=== PATIENT | female | born 1950 | race Hispanic/Latino ===

== ENCOUNTER → 2023-01-09 | Outpatient (REF) | payer MEDICARE ==
[~2023-01-09] MED LIST: LEVOTHYROXINE50 MCG PO; SIMVASTATIN20 MG PO; ZESTRIL10 MG PO
== END ==
LOC: MRI 09:24
PROVIDERS: ATTEND Specialist
DX: M75.102 Unspecified rotator cuff tear or rupture of left shoulder, not specified as traumatic (principal)